=== PATIENT | female | born 1975 | race Caucasian/White ===

== ENCOUNTER 2020-10-01 11:45 | Emergency (ER) | payer MEDICAID ==
[~2020-10-01] VITALS: Ht 157.5 cm; Wt 82.2 kg
--- NOTE | 2020-10-01 12:19 | NUR ---
PT CAME IN CO SEVERE EPIGASTRIC PAIN THAT WOKE HER FROM HER SLEEP. PT DENIES BLOODY STOOL OR VOMITTING. PT RESTING IN [facility].
[2020-10-01] MEDS ORDERED: ONDANSETRON 2MG/ML, 2ML ONE (12:58)
[2020-10-01] MEDS ORDERED: MORPHINE SULFATE 4 MG/ML, 1ML ONE (12:58)
[2020-10-01] MEDS ORDERED: MORPHINE SULFATE 4 MG/ML, 1ML IVPush PRN (13:00)
[2020-10-01] MEDS ORDERED: ONDANSETRON 2MG/ML, 2ML IVPush ONE (13:00)
[2020-10-01] MEDS ORDERED: SODIUM CHLORIDE 0.9% 1,000ML IVBOLUS ONE (13:00)
[2020-10-01] MEDS ORDERED: SODIUM CHLORIDE FLUSH 10ML SYR IVF ONE (13:00)
[2020-10-01 13:06] LABS: MICROSCOPIC NOT IND
[2020-10-01 13:14] LABS: BASOPHILS % (AUTO) 1 % (0-1); EOSINOPHILS % (AUTO) 0 % (1-7); LYMPHOCYTES % (AUTO) 22 % (22-44); MEAN CORPUSCULAR HGB CONC 33.7 g/dL (32.4-35.8); MEAN PLATELET VOLUME 7.6 fL (7.4-10.4); MONOCYTES % (AUTO) 11 % (2-9); NEUTROPHILS % (AUTO) 65 % (42-75); PLATELET COUNT 264 x10^3/uL (130-400); RED BLOOD COUNT 4.32 x10^6/uL (3.82-5.3); RED CELL DISTRIBUTION WIDTH 15.4 % (9.6-15.2)
[2020-10-01 13:26] LABS: ALANINE AMINOTRANSFERASE 28 U/L (12-78); ALBUMIN 2.9 g/dL (3.4-5.0); ANION GAP 6 mmol/L (5-15); CALCIUM 8.1 mg/dL (8.5-10.1); CHLORIDE 108 mmol/L (98-107); CREATININE 0.91 mg/dL (0.55-1.02)
[2020-10-01 13:28] LABS: ALKALINE PHOSPHATASE 77 U/L (45-117); BILIRUBIN,TOTAL 0.4 mg/dL (0.2-1.0); TOTAL PROTEIN 6.7 g/dL (6.4-8.2)
[2020-10-01] MEDS ORDERED: OMNIPAQUE 350 MG/ML, 100ML BOTTLE ONE (13:48)
[2020-10-01 14:30] VITALS: BP 128/74
[2020-10-01] MEDS ORDERED: OXYcodone/APAP 5/325MG TABLET ONE (17:46)
[2020-10-01] MEDS ORDERED: OXYcodone/APAP 5/325MG TABLET PO ONE (18:00)
== END 2020-10-01 18:02 | disposition home or self-care (01) ==
LOC: ED 16:47
DX: K80.20 Calculus of gallbladder without cholecystitis without obstruction (principal)
CPT/HCPCS: 36415; 74177; 76700; 80053; 81003; 83690; 85025; 96361; 96374; 96375; 99285; J2270; J2405; J7030; Q9967